=== PATIENT | female | born 1950 | race African-American/Black ===

== ENCOUNTER → 2017-05-28 | Outpatient (CLI) | payer MEDICARE, OTHER ==
[~2017-05-28] MED LIST: ALBU8HFA4 IH; ALPR0.255 PO; BENA10TA3 PO; BUDE0.255 NEB; BUDE10.2 IH; CLON.1 PO; COMP5 PO; DILT60CA PO; FERR140T PO; HYDR-308 PO; HYDR-4031 PO; IPRA3AMP4 NEB; IPRAHFA IH; MECL12.585 PO; MELO-273 PO; METO50 PO; MORP30TA11 PO; OMEP40CA PO; OXYGEN NASAL; PROM25 PO; TIOT185 IH; ZOLP5 PO
[2017-05-28 12:44] VITALS: BP 124/74
== END | disposition home or self-care (01) ==
LOC: SRCNTR 12:26
PROVIDERS: ATTEND Internal Medicine
DX: J44.9 Chronic obstructive pulmonary disease, unspecified (principal); I10 Essential (primary) hypertension; G47.33 Obstructive sleep apnea (adult) (pediatric); R52 Pain, unspecified; R09.02 Hypoxemia; C34.90 Malignant neoplasm of unspecified part of unspecified bronchus or lung; Z92.21 Personal history of antineoplastic chemotherapy; Z92.3 Personal history of irradiation
CPT/HCPCS: G0463

== ENCOUNTER → 2017-11-23 | Outpatient (CLI) | payer MEDICARE, OTHER ==
[~2017-11-23] MED LIST changes: +ACET-784 PO; -ALPR0.255 PO; +ASCO500 PO; -BENA10TA3 PO; +BISA5TAB12 PO; -BUDE10.2 IH; -CLON.1 PO; +CLON.5 PO; -COMP5 PO; +FAMO20 PO; +GUAIF600 PO; -HYDR-308 PO; +HYDR-309 PO; -MECL12.585 PO; -MELO-273 PO; -METO50 PO; -MORP30TA11 PO; +NITR.4 SL; +ONDA4 PO; +QUET50XR PO; -ZOLP5 PO
[2017-11-23 14:25] VITALS: BP 127/72
== END | disposition home or self-care (01) ==
LOC: SRCNTR 14:14
PROVIDERS: ATTEND Internal Medicine Critical Care Medicine
DX: G47.33 Obstructive sleep apnea (adult) (pediatric) (principal); J44.9 Chronic obstructive pulmonary disease, unspecified; I10 Essential (primary) hypertension; C34.90 Malignant neoplasm of unspecified part of unspecified bronchus or lung; Z92.21 Personal history of antineoplastic chemotherapy; Z92.3 Personal history of irradiation
CPT/HCPCS: G0463

== ENCOUNTER → 2018-01-19 | Outpatient (CLI) | payer MEDICARE, OTHER ==
[~2018-01-19] MED LIST changes: +DULO30CA2 PO; +FOLI1 PO; -OMEP40CA PO; -PROM25 PO
[2018-01-19 13:54] VITALS: BP 117/64
== END | disposition home or self-care (01) ==
LOC: SRCNTR 13:37
PROVIDERS: ATTEND Internal Medicine Critical Care Medicine
DX: J44.9 Chronic obstructive pulmonary disease, unspecified (principal); I10 Essential (primary) hypertension; G47.33 Obstructive sleep apnea (adult) (pediatric); I27.81 Cor pulmonale (chronic); C34.90 Malignant neoplasm of unspecified part of unspecified bronchus or lung; Z92.21 Personal history of antineoplastic chemotherapy
CPT/HCPCS: G0463

== ENCOUNTER → 2018-02-04 | Outpatient (CLI) | payer MEDICARE, OTHER ==
[2018-02-04 11:54] VITALS: BP 141/88
== END | disposition home or self-care (01) ==
LOC: SRCNTR 11:12
PROVIDERS: ATTEND Internal Medicine Critical Care Medicine
DX: J44.9 Chronic obstructive pulmonary disease, unspecified (principal); I10 Essential (primary) hypertension; G47.33 Obstructive sleep apnea (adult) (pediatric); I27.81 Cor pulmonale (chronic); C34.90 Malignant neoplasm of unspecified part of unspecified bronchus or lung; Z91.81 History of falling; Z92.21 Personal history of antineoplastic chemotherapy
CPT/HCPCS: G0463

== ENCOUNTER → 2018-02-17 | Outpatient (CLI) | payer MEDICARE, OTHER | END | disposition home or self-care (01) | LOC: RADMN 09:37 | PROVIDERS: ATTEND Internal Medicine Critical Care Medicine | DX: I67.82 Cerebral ischemia (principal); I67.2 Cerebral atherosclerosis; I63.8 Other cerebral infarction; J44.9 Chronic obstructive pulmonary disease, unspecified; J98.4 Other disorders of lung; Z91.81 History of falling | CPT/HCPCS: 70450; 71250 ==

== ENCOUNTER → 2018-04-08 | Outpatient (CLI) | payer MEDICARE, OTHER ==
[2018-04-08 13:36] VITALS: BP 140/105
== END | disposition home or self-care (01) ==
LOC: SRCNTR 13:33
PROVIDERS: ATTEND Internal Medicine Critical Care Medicine
DX: J44.9 Chronic obstructive pulmonary disease, unspecified (principal); G47.33 Obstructive sleep apnea (adult) (pediatric); I10 Essential (primary) hypertension; R52 Pain, unspecified; C34.90 Malignant neoplasm of unspecified part of unspecified bronchus or lung; Z92.3 Personal history of irradiation; Z91.81 History of falling
CPT/HCPCS: G0463

== ENCOUNTER → 2018-07-30 | Outpatient (CLI) | payer MEDICARE, OTHER ==
[~2018-07-30] MED LIST changes: -FERR140T PO; +FERR140T2 PO; +IPRA3AMP23 NEB; -IPRA3AMP4 NEB
[2018-07-30 14:59] VITALS: BP 112/70
== END | disposition home or self-care (01) ==
LOC: SRCNTR 14:55
PROVIDERS: ATTEND Internal Medicine Critical Care Medicine
DX: J44.9 Chronic obstructive pulmonary disease, unspecified (principal); I10 Essential (primary) hypertension; R52 Pain, unspecified; G47.33 Obstructive sleep apnea (adult) (pediatric); Z91.81 History of falling; Z85.118 Personal history of other malignant neoplasm of bronchus and lung; Z92.21 Personal history of antineoplastic chemotherapy; Z92.3 Personal history of irradiation
CPT/HCPCS: G0463

== ENCOUNTER → 2018-09-15 | Outpatient (CLI) | payer MEDICARE, OTHER ==
[2018-09-15 11:32] LABS: ANION GAP 3 mmol/L (8-16); CALCIUM, TOTAL 9.2 mg/dL (8.8-10.5); CARBON DIOXIDE 39 mmol/L (22-29); CHLORIDE 96 mmol/L (98-107); CREATININE 0.87 mg/dL (0.60-1.30); GLOMERULAR FILTR. RATE CALC > 60 mL/min (>60); GLUCOSE,RANDOM 87 mg/dL (70-110); SODIUM SERUM 138 mmol/L (136-145); UREA NITROGEN, BLOOD 9 mg/dL (7-18)
== END | disposition home or self-care (01) ==
LOC: LABPV 08:48
PROVIDERS: ATTEND Internal Medicine Critical Care Medicine
DX: C34.90 Malignant neoplasm of unspecified part of unspecified bronchus or lung (principal)

== ENCOUNTER → 2018-09-27 | Outpatient (CLI) | payer MEDICARE, OTHER ==
[~2018-09-27] MED LIST changes: +IOVERSOL 350 MG/ML 100 ML VIAL ONE; +SODIUM CHLORIDE 0.9% 100 ML ONE
== END | disposition home or self-care (01) ==
LOC: RADMN 08:14
PROVIDERS: ATTEND Internal Medicine Critical Care Medicine
DX: Z08 Encounter for follow-up examination after completed treatment for malignant neoplasm (principal); J43.9 Emphysema, unspecified; I25.10 Atherosclerotic heart disease of native coronary artery without angina pectoris; I70.0 Atherosclerosis of aorta; K57.30 Diverticulosis of large intestine without perforation or abscess without bleeding; Z85.118 Personal history of other malignant neoplasm of bronchus and lung
CPT/HCPCS: 71260; 72193; 74160; J7050; Q9967